=== PATIENT | female | born 1980 | race Caucasian/White ===

== ENCOUNTER 2022-05-06 13:40 | Emergency (ER) | payer BC ==
[2022-05-06] MEDS ORDERED: LORATADINE 10 MG TABLET PO ONE (13:53)
[2022-05-06] MEDS ORDERED: predniSONE 20 MG TABLET (UD) PO ONE (13:53)
[2022-05-06 14:11] VITALS: BP 126/90; PULSE 80; RESP 16; TEMP 98.4; BMI 25.8
[2022-05-06] MEDS ORDERED: LORATADINE 10 MG TABLET ONE (14:23)
[2022-05-06] MEDS ORDERED: predniSONE 20 MG TABLET (UD) ONE (14:23)
[2022-05-06 14:57] LABS: ALBUMIN 4.3 g/dl (3.4-5.0); BILIRUBIN,TOTAL 0.6 mg/dl (0.2-1); CALCIUM 9.2 mg/dl (8.5-10); CREATININE 0.5 mg/dl (0.55-1.3); TOT PROT 7.8 g/dl (6.4-8.2)
[2022-05-06 15:00] LABS: HEMATOCRIT 39.4 % (32.4-45.2); HEMOGLOBIN 13.7 G/dL (10.7-15.3); MCH 31.7 pg (25.7-33.7); MCHC 34.8 g/dl (32.0-36.0); MEAN CELL VOLUME 91.1 fl (80-96); MEAN PLT VOLUME 9.6 fl (7.5-11.1); PLATELET COUNT 249.4 10^3/uL (134-434); RBC 4.33 10^6/uL (3.60-5.2); RDW 13.9 % (11.6-15.6); WHITE BLOOD COUNT 7.1 10^3/uL (4.0-10.8)
[2022-05-06 16:16] LABS: PLATELET ESTIMATE ADEQUATE
[2022-05-06 16:33] LABS: ERYTHROCYTE SEDIMENTATION RATE 10 mm/hr (0-20)
== END 2022-05-06 15:28 | disposition home or self-care (01) ==
LOC: FER 13:40
DX: M25.432 Effusion, left wrist (principal); R21 Rash and other nonspecific skin eruption
CPT/HCPCS: 36415; 80053; 81003; 81015; 84703; 85027; 85651; 86140; 86618; 99283-25